=== PATIENT | male | born 1950 | race African-American/Black ===

== ENCOUNTER → 2021-07-19 09:33 | Outpatient (CLI) | payer MEDICARE, OTHER, SELFPAY ==
--- NOTE | 2021-07-19 | DI.MRI.S_ITS ---
PROCEDURE: MR SHOULDER RT WO CON INDICATIONS: Pain in right shoulder TECHNIQUE: Noncontrast oblique coronal T2 fast spin echo with fat saturation, oblique sagittal T1 spin echo and T2 fast spin echo with fat saturation, axial T1 spin echo and T2 fast spin echo with fat saturation through the shoulder. Additional STIR sequences were obtained in the axial, oblique coronal, and oblique sagittal planes. COMPARISON: [facility], MR, SHOULDER RT W/ CONTRAST, 02/28/2014, 12:45. [facility], MR, SHOULDER WITHOUT CONTRAST, 09/01/2012, 14:20. FINDINGS: Image quality: Excellent. Rotator cuff: Postsurgical changes are seen from rotator cuff tendon repair with surgical anchors in the greater tuberosity. The supraspinatus and infraspinatus tendons are continuous with the distal fixation devices. No recurrent full-thickness tendon tear is seen. The teres minor tendon is intact. There is moderate subscapularis tendinosis. Mild atrophy and grade 2 fatty infiltration of the infraspinatus muscle is noted. Bones and bursae: Postsurgical changes are seen at the greater tuberosity. No acute trabecular bone injury. Mild degenerative spurring is seen in the glenoid rim. No focal cartilage defect is identified. Moderate degenerative changes are seen in the acromioclavicular joint. There is mild downsloping of the lateral acromion. A small amount of fluid in the subacromial/subdeltoid bursa is expected in the postsurgical setting. A physiologic amount of glenohumeral joint fluid is present. Capsule and soft tissues: Mild blunting of the superior labrum is most likely secondary to prior labral debridement. There is nondisplaced tearing of the posterosuperior labrum with imbibition of [place] joint fluid. Status post biceps tenodesis with an intact surgical construct. The glenohumeral ligaments are intact. IMPRESSION: 1. Postsurgical changes from rotator cuff tendon repair with an intact surgical construct. No recurrent full-thickness rotator cuff tendon tear is seen. 2. Moderate subscapularis tendinosis. 3. Status post biceps tenodesis with an intact surgical construct. 4. Small nondisplaced tear of the posterosuperior labrum. Diminutive appearance of the superior labrum is most likely secondary to prior surgical debridement. 5. Moderate acromioclavicular joint osteoarthrosis. Dictated by: Charles Benjamin M.D. on 07/19/2021 at 11:34 Approved by: Charles Benjamin M.D. on 07/19/2021 at 11:45
== END ==
PROVIDERS: PCP Internal Medicine; Referring Provider Internal Medicine; Visit Provider Internal Medicine
DX: M25.511 Pain in right shoulder (principal); M19.011 Primary osteoarthritis, right shoulder; S43.491A Other sprain of right shoulder joint, initial encounter
CPT/HCPCS: 73221

== ENCOUNTER → 2022-10-30 13:06 | Outpatient (CLI) | payer MEDICARE, OTHER, SELFPAY ==
--- NOTE | 2022-10-30 13:09 | DI.ECHO.S_ITS ---
[facility] +---------+ : : [address] [place] : : : : [id number] : : : : Phone: [phone]+ Echocardiogram Report + + :Name: MILIND PULLIAM Study Date: 10/30/2022 Height: 71 in : :[facility] ReadingLocation: Weight: 197 lb : : Gender: Male BSA: 2.1 m2 : :: 1950 Age: 72 yrs BP: 126/84 mmHg: :Reason For Study: Ascending aorta dilatation, dyspnea on : :exertion : :Ordering Physician: Jasmin : :Olga Still Performed By: Moni Salinas : :Referring: JASMIN STILL : + + Interpretation Summary 1) Normal left ventricular size, wall motion, and systolic function (EF 60- 65%). 2) Normal right ventricular size and function. 3) No significant valvular abnormalities. 4) Aortic root and ascending aorta are normal in size. 5) No prior Echo available for comparison. Procedure: A two-dimensional transthoracic echocardiogram with color flow and Doppler was performed. The study quality was technically good. The patient was in sinus rhythm with heart rates between 65-83 bpm during the exam. The patient had occasional PVCs during the exam. Left Ventricle: The left ventricle is normal in size. There is mild concentric left ventricular hypertrophy. The ejection fraction is estimated to be 55-60%. Left ventricular systolic function appears normal without focal wall motion abnormalities. Diastolic parameters suggest a relaxation abnormality of the left ventricle, consistent with probable normal filling pressures. Right Ventricle: The right ventricle is normal in size and function. Atria: The left atrial size is normal. Right atrial size is normal. There is no Doppler evidence for an interatrial shunt. Mitral Valve: The mitral valve is normal in structure and function. There is trace mitral regurgitation. Aortic Valve: The aortic valve is normal in structure and function. The aortic valve is slightly calcified. No aortic regurgitation is present. Tricuspid Valve: The tricuspid valve is normal in structure and function. There is a trace or physiologic amount of tricuspid regurgitation. Pulmonic Valve: The pulmonic valve leaflets are thin and pliable; valve motion is normal. There is mild pulmonic regurgitation. Great Vessels: The aortic root is normal size. The ascending aorta is normal in size. The IVC is of normal diameter and collapses greater than 50% with a sniff. This suggests a low right atrial pressure of 3 mm Hg. Pericardium/ Pleura There is no pericardial effusion. There is no pleural effusion. MMode/2D Measurements & Calculations LVIDd: 4.0 cm LVOT diam: 2.1 cm LVIDs: 2.5 cm Ao root diam: 3.9 cm FS: 37.5 % asc Aorta Diam: 3.6 cm EPSS: 0.30 cm IVSd: 1.2 cm LVPWd: 1.2 cm LV blount. diameter/BSA (cm/m^2): 1.9 LV sys. diameter/BSA (cm/m^2): 1.2 LA dimension: 4.2 cm RA long axis: 4.5 cm LA A2 area: 15.2 cm2 RA area: 12.2 cm2 LA A4 area: 14.7 cm2 RA vol: 28.4 ml LA length (vol): 4.4 cm RA : 13.6 ml/m2 LA vol: 43.1 ml IVC diam: 1.9 cm LA vol index: 20.6 ml/m2 RVD1 (basal): 4.0 cm LVLs ap4: 7.0 cm LVLd ap2: 7.9 cm LVLs ap2: 6.7 cm Doppler Measurements & Calculations Ao V2 max: 106.0 cm/sec LVOT Max Alexandru: 82.2 cm/sec Ao V2 mean: 79.3 cm/sec LV V1 max P.7 mmHg Ao max P.0 mmHg LV V1 VTI: 15.0 cm Ao mean P.0 mmHg BRITTNEY(I,D): 3.0 cm2 Ao V2 VTI: 17.3 cm BRITTNEY(V,D): 2.7 cm2 sev ratio: 0.87 BRITTNEY indexed to BSA (cm^2/m^2): 1.4 MV E max alexandru: 50.6 cm/sec TR max alexandru: 176.0 cm/sec MV A max alexandru: 72.4 cm/sec TR max P.4 mmHg MV E/A: 0.70 PA V2 max: 86.2 cm/sec Med Peak E' Alexandru: 4.6 cm/sec PA V2 mean: 57.5 cm/sec E/E' med: 10.9 PA mean P.0 mmHg Lat Peak E' Alexandru: 5.5 cm/sec E/E' lat: 9.2 E/e' average: 10.0 MV dec time: 0.25 sec MVA(VTI): 2.5 cm2 MV V2 mean: 43.2 cm/sec SV(LVOT): 52.0 ml MV mean P.0 mmHg MV V2 VTI: 21.2 cm AV VR_phl: 0.78 MV P1/2t-pr_phl: 73.0 msec BRITTNEY(VTI)/BSA_phl: 1.4 Reading Physician:06:13 PM
--- NOTE | 2022-10-30 13:10 | DI.NM.S_ITS ---
PROCEDURE: NM EXERCISE TREADMILL NON NUC COMPARISON: None. INDICATIONS: Thoracic aortic ectasia FINDINGS: Rest ECG sinus rhythm. Aamir protocol 9:00, maximum heart rate 162 bpm (109% peak predicted), maximum blood pressure 170/102, 10.1 METS, YARA -29%. Exercise ECG sinus tachycardia, no ST segment changes, occasional to frequent PVCs, no arrhythmias. The patient did not complain of exercise-induced chest pain. IMPRESSION: Low risk study. No evidence of exercise-induced ischemia. Occasional to frequent PVCs with exertion. Very good exercise capacity. Dictated by: Lulu Diaz D.O. on 10/30/2022 at 17:09 Approved by: Lulu Diaz D.O. on 10/30/2022 at 17:13
== END ==
PROVIDERS: PCP Internal Medicine; Referring Provider Internal Medicine Cardiovascular Disease; Visit Provider Internal Medicine Cardiovascular Disease
DX: R06.09 Other forms of dyspnea (principal); I77.810 Thoracic aortic ectasia; I49.3 Ventricular premature depolarization
CPT/HCPCS: 93017; 93306

== ENCOUNTER → 2024-08-08 09:56 | Outpatient (CLI) | payer MEDICARE, OTHER, SELFPAY ==
--- NOTE | 2024-08-08 09:58 | DI.RAD.S_ITS ---
PROCEDURE: FL BARIUM SWALLOW INDICATIONS: hoarseness and abn swallowing COMPARISON: None. FINDINGS: Function: Mild esophageal dysmotility is present, with spontaneous esophageal reflux up to the lower thoracic esophagus in the erect position. There is spontaneous esophageal reflux up to the level of the clavicles in the supine position. There is normal transit of a calibrated barium tablet through the esophagus into the stomach. Morphology: Air-contrast images demonstrate normal mucosal morphology. Single contrast views show no esophageal strictures, extrinsic mass effects, or diverticula. Limited images of the stomach demonstrate normal appearance. There is no evidence of a hiatal hernia status post Valsalva maneuver. IMPRESSION: Spontaneous gastroesophageal reflux up to the level of the clavicles in the supine position. If symptoms of hoarseness persist despite management, consider a CT neck soft tissue with contrast to evaluate for other etiologies. Dictated by: Frederic Chairez M.D. on 08/08/2024 at 10:50 Approved by: Frederic Chairez M.D. on 08/08/2024 at 10:54
== END ==
PROVIDERS: PCP Internal Medicine; Referring Provider Internal Medicine; Visit Provider Internal Medicine
DX: K21.9 Gastro-esophageal reflux disease without esophagitis (principal); R49.9 Unspecified voice and resonance disorder
CPT/HCPCS: 74220

== ENCOUNTER → 2025-07-08 10:55 | Outpatient (CLI) | payer MEDICARE, OTHER, SELFPAY ==
--- NOTE | 2025-07-08 10:57 | DI.MRI.S_ITS ---
PROCEDURE: MR SHOULDER RT WO CON INDICATIONS: pain in right shoulder TECHNIQUE: Noncontrast oblique coronal T2 fast spin echo with fat saturation, oblique sagittal T1 spin echo and T2 fast spin echo with fat saturation, axial T1 spin echo and T2 fast spin echo with fat saturation through the shoulder. COMPARISON: [facility], MR, MR SHOULDER RT WO CON, 07/19/2021, 9:37. FINDINGS: Image quality: Excellent. Rotator cuff: Postsurgical changes from superior rotator cuff repair. No high- grade per current or retear of the repaired supraspinatus or infraspinatus tendon. No atrophy or fatty infiltration of the supraspinatus. Similar moderate fatty infiltration of infraspinatus. Teres minor is intact. Interval high-grade, functional full-thickness, near full width tear of subscapularis from the lesser tuberosity. There are few intact far inferior tendon fibers. The tear with is 3.3 cm (07/06). The torn fibers are retracted to the medial humeral head by 2 cm (2/14). No significant atrophy or fatty infiltration of the supraspinatus muscle belly. Biceps: Changes of prior biceps tenodesis Osseous structures and articular cartilage: No fracture, or suspicious marrow replacing process, or contusion. Diffuse superficial articular cartilage thinning in fraying without full-thickness high-grade articular cartilage defect. Supraspinatus outlet: Moderate degenerate arthrosis of the acromioclavicular joint. Downsloping distal acromion with small subacromial spurring. Small volume subacromial subdeltoid bursitis. Intra-articular: Blunting of the anterior and superior labrum, likely postoperative change. Chronic scarring of the posterior superior labrum at the chondrolabral junction. Mild capsular thickening and pericapsular edema. Extra-articular: Similar postsurgical changes in the deltoid and superficial soft tissues. No axillary lymphadenopathy. IMPRESSION: 1. Changes of superior rotator cuff repair without high-grade re-tear of the repaired supraspinatus and infraspinatus tendons. 2. Changes of biceps tenodesis. 3. Interval high-grade full-thickness, partial width tear of the subscapularis which is retracted to the medial humeral head. 4. Similar moderate degenerative arthrosis of the acromioclavicular joint with downsloping acromion and small volume subacromial subdeltoid bursitis. Correlate for symptoms of subacromial impingement. 5. Chronic scarring of the posterior superior labrum with blunting of the anterior and superior labral free edge, likely postsurgical change. Dictated by: Mickey Harman M.D. on 07/10/2025 at 12:21 Approved by: Mickey Harman M.D. on 07/10/2025 at 12:30
== END ==
DX: M25.511 Pain in right shoulder (principal); S46.011A Strain of muscle(s) and tendon(s) of the rotator cuff of right shoulder, initial encounter; M19.011 Primary osteoarthritis, right shoulder; M75.51 Bursitis of right shoulder
CPT/HCPCS: 73221